=== PATIENT | male | born 1995 | race Caucasian/White ===

== ENCOUNTER 2021-06-10 22:25 | Emergency (ER) | payer OTHER, SELFPAY ==
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
[2021-06-10 22:26] VITALS: BP 137/100; PULSE 74; RESP 17; TEMP 36.4; O2SAT 98
[2021-06-10] MEDS: SODIUM CHLORIDE 0.9% IV 1,000 ML 999 ML IV CONT (23:17)
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
[2021-06-10] MEDS: HYDROcodone/acetaminophen (*CRX) 5-325 MG TABLET 1 TAB PO (23:55)
[2021-06-11 00:44] VITALS: BP 140/87; PULSE 61; RESP 17; TEMP 36.7; O2SAT 98
== END 2021-06-11 00:40 | disposition home or self-care (01) ==
PROVIDERS: Emergency Provider Emergency Medicine
DX: S42.022A Displaced fracture of shaft of left clavicle, initial encounter for closed fracture (principal); V18.0XXA Pedal cycle driver injured in noncollision transport accident in nontraffic accident, initial encounter; Y93.55 Activity, bike riding
CPT/HCPCS: 71045; 73000; 96360; 99284; A4565; A9270; J7030